=== PATIENT | male | born 1960 | race African-American/Black ===

== ENCOUNTER 2019-12-24 07:58 | Emergency (ER) | payer OTHER ==
[~2019-12-24] VITALS: Ht 177.8 cm; Wt 81.7 kg
--- NOTE | ~2019-12-24 | EMS ---
[address] [address] EMS Patient Care Report Name: NOEMI CANALES Room #: DEP NEMO Barger#: [id number] Admission: 12/24/19 Attend Phys: Discharge: 12/24/19 Date of : 58 Report #: [id number] THIS REPORT FOR: //name// Report Transmitted: 12/24/2019 08:25 EMS Care Summary [place], [place]/[facility] Incident [id number] @ 12/24/2019 07:20 Incident [id number] [place] [address] [address] Patient NOEMI CANALES Male, 59 Years 1960 Patient Address [address] [place] [address] Patient History Chronic Obstructive Pulmonary Disease (COPD),Seizures,Lung Cancer,Past Traumatic Brain Injury, Patient Allergies No known allergies, Patient Medications Umeclidinium, Divalproex Sodium, Combivent, Lamotrigine, Chief Complaint AMS Disposition Transported No Lights/[place] Reason Unconscious/Fainting Transported To [facility] Narrative PT FOUND LYING IN BED. [facility] ALSO RESPONDED. STAFF STATES THAT THEY WERE UNABLE TO WAKE PT THIS AM PRIOR TO CALLING EMS. STAFF STATES THAT PT IS NEW TO [address] [address] EMS Patient Care Report Name: NOEMI CANALES Room #: DEP ER [place]#: [id number] Admission: 12/24/19 Attend Phys: Discharge: 12/24/19 Date of : 58 Report #: [id number] THEM LAST NIGHT AND THAT THEY DO NOT KNOW WHAT PT BASE LINE IS. ON EMS ARRIVAL, PT IS AWAKE AND WILL FOLLOW COMMANDS. TRANSPORTED WITHOUT INCIDENT. Initial Vitals @07:38P: 129,R: 18,BP: 93/63,Pain: 0/10,GCS: 14,Glucose: 76,SpO2: 100,Revised Trauma: 12, Assessments @07:28MENTAL:Other,SKIN:No Abnormalities,HEENT:Head/Face: No Abnormalities,Eyes: No Abnormalities,Neck/Airway: No Abnormalities,LUNG SOUNDS:ABDOMEN:PELVIS//GI:EXTREMITIES:PULSE:NEURO:No Abnormalities, Impression Altered Mental Status Procedures @07:28ALS AssessmentResponse: UnchangedSucceeded Timeline 07:18,Call Received 07:18,Dispatch Notified 07:20,Dispatched 07:20,En Route 07:24,On Scene 07:28,At Patient 07:28,ALS Assessment,Response: UnchangedSucceeded, 07:38,BP: 93/63 M,PULSE: 129,RR: 18 R,SPO2: 100 Ox,ETCO2: ,B,PAIN: 0,GCS: 14, 07:41,Depart Scene 07:52,At Destination 08:06,Call Closed Disclaimer v1.1 Copyright 2020 [employer] This EMS Care Summary contains data elements from the applicable legal record (which may be displayed differently). It is designed to provide pertinent information for the following purposes: continuity of care, clinical quality, and state data reporting. The complete legal record is available to ED staff and administrators of the receiving hospital in [facility]'s Patient Tracker. All data is provided "as is."
--- NOTE | 2019-12-24 09:21 | EKG ---
[facility] [place] [address] ELECTROCARDIOGRAM REPORT Name: NOEMI CANALES Room #: PRE M..#: [id number] Admission: Attend Phys: Discharge: Date of : 58 Report #: [id number] THIS REPORT FOR: cc: Philipp Pedraza MD [facility] THIS REPORT FOR: //name// [facility] ED Test Date: 2019-12-24 Test Time: 08:10:38 Pat Name: NOEMI CANALES Department: Room: Gender: [employer]: [place] : 1960 Requested By: Dori Potter Order Number: [id number] MD: Philipp Pedraza Measurements Intervals [place] Rate: 104 P: 65 VA: 135 QRS: 8 QRSD: 75 T: 48 QT: 314 QTc: 413 Interpretive Statements Sinus tachycardia Low voltage, extremity leads No previous ECG available for comparison Electronically Signed On 12-24-2019 9:20:39 DISPLAY CARVER by Philipp Pedraza [email or web address] <ELECTRONICALLY SIGNED> By: Philipp Pedraza MD, [facility] 12/24/19 0920 0810 9 Philipp Pedraza MD, FACC /EPI
[2019-12-24 11:33] LABS: URINE BILIRUBIN NEGATIVE (Negative); URINE BLOOD NEGATIVE (Negative); URINE CLARITY CLEAR; URINE COLOR YELLOW; URINE GLUCOSE-RANDOM* NEGATIVE (Negative); URINE KETONES NEGATIVE (Negative); URINE LEUKOCYTES-REFLEX NEGATIVE (Negative); URINE NITRITE-REFLEX NEGATIVE (Negative); URINE PROTEIN (DIPSTICK) NEGATIVE (Negative)
[2019-12-24 12:31] VITALS: BP 108/78
== END 2019-12-24 12:31 ==
LOC: ER 07:58
PROVIDERS: Emergency Medicine
DX: R41.0 Disorientation, unspecified (principal); Z87.820 Personal history of traumatic brain injury